=== PATIENT | male | born 1950 | race Caucasian/White ===

== ENCOUNTER 2022-10-01 17:56 | Emergency (ER) | payer MEDICARE, OTHER ==
[2022-10-01 18:28] VITALS: BP 153/89; PULSE 82
[2022-10-01] MEDS ORDERED: Orphenadrine 60 MG/2 ML Inj IM ONE (18:55)
[2022-10-01] MEDS ORDERED: Ketorolac 30 MG/ML SDV IM ONE (18:55)
== END 2022-10-01 21:13 | disposition home or self-care (01) ==
LOC: DL.ED 17:56
DX: G89.29 Other chronic pain (principal); M54.6 Pain in thoracic spine
CPT/HCPCS: 71046; 96372; 99283; J1885; J2360